=== PATIENT | female | born 1950 | race Caucasian/White ===

== ENCOUNTER 2019-02-03 16:14 | Emergency (ER) | payer MEDICARE, OTHER ==
[~2019-02-03] VITALS: Ht 167.6 cm; Wt 136.1 kg
[~2019-02-03 16:14] MED LIST: ALDACTONE50 MG PO; ALLOPURINOL 10100 M1 PO; ASPIRIN325 PO; CHOLINE PO; COLACE100 MG PO; CORAL CALCIUM1 EAC2 PO; D3 + K2 DOTS 11 EACH PO; FISH OIL 1,001000 M2 PO; LEVOTHYROXIN0.025 MG PO; METFORMIN HCL500 MG PO; OXYCODONE HCL 55 MG PO; PROBIOTIC1 EAC1 PO; TRAMADOL 50 MG50 MG PO; TUMS PO; UNICOMPLEX M TA1 TA1 PO; XARELTO10 MG PO; [UNRECOGNIZED DRUG - OTHER] PO
[2019-02-03] MEDS ORDERED: JARDIANCE10 MG PO (16:41)
[2019-02-03] MEDS ORDERED: JANUMET 50-5001 EACH PO (16:41)
[2019-02-03] MEDS ORDERED: TRULICITY1.5 MG/0.5 SUBQ (16:42)
[2019-02-03] MEDS ORDERED: COZAAR 25 MG TA25 M2 PO (16:43)
[2019-02-03] MEDS ORDERED: KEFLEX500 M1 PO (17:14)
[2019-02-03 17:20] VITALS: BP 134/84
== END 2019-02-03 17:20 | disposition home or self-care (01) ==
LOC: M.ERS 16:14
DX: S61.012A Laceration without foreign body of left thumb without damage to nail, initial encounter (principal); E03.9 Hypothyroidism, unspecified; E11.9 Type 2 diabetes mellitus without complications; Z96.651 Presence of right artificial knee joint; Z91.040 Latex allergy status; Z90.710 Acquired absence of both cervix and uterus; W26.0XXA Contact with knife, initial encounter; Y92.89 Other specified places as the place of occurrence of the external cause; Y93.89 Activity, other specified; Y99.8 Other external cause status